=== PATIENT | female | born 2000 ===

== ENCOUNTER 2018-06-07 15:37 | Emergency (ER) | payer MEDICAID ==
[2018-06-07 15:49] VITALS: RESP 18
[2018-06-07] MEDS ORDERED: guaiFENesin 200 mg/10 ml Syrup UD PO STA (15:57)
--- NOTE | 2018-06-07 15:58 | ED PDOC ---
History of Present Illness History of Present Illness: 18 year old female with no significant past medical history presents to the ED with body aches, dry cough and tactile fever onset x2 days. Patient reports her mother, brother and her mothers boyfriend are sick with influenza. Her temperature on arrival in the ED was 100.4. Patient has a mild headache at present but, denies any throat pain, ear pain, nausea, vomiting, diarrhea, neck pain, abdominal pain, chest pain, SOB, urinary symptoms, or any other medical complaints. She has been taking Ibuprofen for symptoms, but has not taken any today. PMD: Dr. Zimmer LMP: Beginning of month HPI: Influenza Time Seen by Provider: 06/07/18 15:56 Chief Complaint: Headache Chief Complaint (Provider): Headache History Per: Patient Exam Limitations: no limitations Onset/Duration Of Symptoms: Days (x2) Symptoms include: fever, headache, bodyaches, cough. denies: vomiting Past Medical History Reviewed: Historical Data, Nursing Documentation, Vital Signs Vital Signs: Last Vital Signs Temp 100.4 F H 06/07/18 15:46 Pulse 116 H 06/07/18 15:46 Resp 18 06/07/18 15:46 BP 117/81 06/07/18 15:46 Pulse Ox 100 06/07/18 15:46 - Medical History PMH: No Chronic Diseases - Surgical History Surgical History: No Surg Hx - Family History Family History: States: Unknown Family Hx - Social History Current smoker - smoking cessation education provided: No Ex-Smoker (has not smoked in the last 12 months): No Alcohol: None Drugs: Denies - Home Medications Home Medications: Ambulatory Orders Medication Instructions Recorded Acetaminophen [Acetaminophen 8 650 mg PO Q8 PRN #21 tablet.er 06/07/18 Hour] Oseltamivir Cap [Tamiflu] 75 mg PO BID #10 cap 06/07/18 RX: Naproxen 500 mg PO BID PRN #20 tab 06/07/18 RX: Promethazine DM [Phenergan DM 5 ml PO Q6 PRN #150 ml 06/07/18 Syrup] - Allergies Allergies/Adverse Reactions: Allergies Allergy/AdvReac Type Severity Reaction Status Date / Time No Known Allergies Allergy Verified 06/07/18 15:45 Review of Systems ROS Statement: Except As Marked, All Systems Reviewed And Found Negative Constitutional: Positive for: Fever (tactile) ENT: Negative for: Ear Pain, Throat Pain Respiratory: Positive for: Cough (dry) Gastrointestinal: Negative for: Nausea, Vomiting Musculoskeletal: Positive for: Other (body aches) Neurological: Positive for: Headache Physical Exam - Reviewed Nursing Documentation Reviewed: Yes Vital Signs Reviewed: Yes - Physical Exam Comments: GENERAL APPEARANCE: Patient is awake, alert, not toxic appearing, in no acute distress. Resting comfortably. SKIN: Warm, dry; (-) cyanosis. EYES: (-) conjunctival pallor, (-) icterus. ENMT: TMs (-) erythema (-) bulging. Pharynx: clear, uvula midline (+) Pharyngeal erythema (-) tonsillar erythema, (-) tonsillar exudate. Airway patent, (-) stridor. NECK: Supple, FROM (-) stiffness, (-) meningismus, (-) lymphadenopathy. CHEST AND RESPIRATORY: (-) retractions, (-) rales, (-) rhonchi, (-) wheezes; breath equal bilaterally. Respirations even and nonlabored. HEART AND CARDIOVASCULAR: (-) irregularity ABDOMEN AND GI: Soft; (-) tenderness; (-) distention, (-) guarding (-) CVA tenderness. EXTREMITIES: (-) deformity NEURO AND PSYCH: Mental status as above. Gait: steady. Speech: clear. (-) facial asymmetry. Cerebellar tests intact. Strength symmetric throughout. gericare aide teacher II-XII: grossly intact. EOMI and painless. Pupils equal and reactive. Medical Decision Making Medical Decision Making: Time: 1555 Clinical Impression: Body aches, headache, fever, probable influenza Initial Plan: --U preg --Ibuprofen 600 mg PO --Robitussin 200 mg PO --Tylenol 650 mg PO --Influenza A B --Rapid strep 1645 Rapid Strep: Negative Influenza: Negative Tamiflu 75mg PO ordered for high suspicion of influenza given symptoms and sick contacts at home. Pending repeat vitals. 1750 Repeat temp: 99.1 oral Repeat HR: 78 On re-evaluation, patient reports improvement of symptoms. On exam, patient remains AAOx3, in no acute distress. Lungs clear to auscultation, cardiac RRR, repeat neuro exam shows no focal findings. Vitals stable. Lab /Diagnostic results d/w the patient in great detail. Diagnosis of influenza, fever, body aches, cough d/w the patient. Based on history, exam and diagnostic results, plan will be for outpatient follow up. Patient instructed to follow-up with pmd / referral provided / the clinic in 1- 2 days without fail. Advised to take medication as prescribed. Return to the emergency room at any time for any new or worsening symptoms. Patient states she fully agrees with and understands discharge instructions. States that she agrees with the plan and disposition. Verbalized and repeated discharge instructions and plan. I have given the patient opportunity to ask any additional questions. Scribe Attestation: Documented by Deb Keen, acting as a scribe for Afsaneh Javier PA-C. Attestation: All medical record entries made by the Scribe were at my direction and personally dictated by me. I have reviewed the chart and agree that the record accurately reflects my personal performance of the history, physical exam, medical decision making, and the department course for this patient. I have also personally directed, reviewed, and agree with the discharge instructions and disposition. - Laboratory Results Urine POC: Negative - ECG O2 Sat by Pulse Oximetry: 100 (RA) Pulse Ox Interpretation: Normal Disposition - Clinical Impression Clinical Impression: Influenza, Fever, Body aches, Cough in adult - Patient ED Disposition Is Patient to be Admitted: No Counseled Patient/Family Regarding: Studies Performed, Diagnosis, Need For Fol lowup, Rx Given - Disposition Referrals: [facility] [Outside] Avila Zimmer MD [Staff Provider] - Disposition Time: 17:50 Condition: STABLE Additional Instructions: The emergency medical care you received today was directed at your acute symptoms. If you were prescribed any medication, please fill it and take as directed. It may take several days for your symptoms to resolve. Return to the Emergency Department if your symptoms worsen, do not improve, or if you have any other problems. Please contact your doctor in 2 days for re-evaluation and follow up / or call one of the physicians/clinics you have been referred to that are listed on the Patient Visit Information form that is included in your discharge packet. Bring any paperwork you were given at discharge with you along with any medications you are taking to your follow up visit. Our treatment cannot replace ongoing medical care by a primary care provider (PCP) outside of the emergency department. Prescriptions: Acetaminophen [Acetaminophen 8 Hour] 650 mg PO Q8 PRN #21 tablet.er PRN Reason: Fever >100.4 F RX: Naproxen 500 mg PO BID PRN #20 tab PRN Reason: bodyaches, pain Oseltamivir Cap [Tamiflu] 75 mg PO BID #10 cap RX: Promethazine DM [Phenergan DM Syrup] 5 ml PO Q6 PRN #150 ml PRN Reason: Cough Instructions: Cough in Adults, Flu, Adult (DC), Fever, Adult (DC), When to Worry About a Fever, Flu Test Forms: [employer] ([employer]), [facility] ED School/Work Excuse Print Language: HONDURAN - POA Present On Arrival: None Results - Lab Results Lab Results: 06/07/18 06/07/18 16:19 16:19 Influenza Typ A,B (EIA) Negative for flu a/b Grp A Beta Strep Ag Negative
[2018-06-07] MEDS ORDERED: guaiFENesin 100 mg/5 ml Syrup UD ONE (16:20)
[2018-06-07 18:24] VITALS: BP 114/78; PULSE 78; TEMP 99.1
[2018-06-08 13:55] VITALS: O2SAT 100
== END 2018-06-07 18:15 | disposition home or self-care (01) ==
LOC: H.ER 15:37
DX: J11.1 Influenza due to unidentified influenza virus with other respiratory manifestations (principal); R50.9 Fever, unspecified